=== PATIENT | female | born 1970 | race Caucasian/White ===

== ENCOUNTER 2017-04-02 13:25 | Emergency (ER) | payer OTHER ==
[2017-04-02] MEDS ORDERED: Lidocaine 1% 10 MG/ML - 20 ML VIAL SUBCUT ONE (13:49)
[2017-04-02 13:54] VITALS: RESP 15; TEMP 97.7
[2017-04-02] MEDS ORDERED: DIPH,PERTUSS,TET(ADACEL) VAC/PF 0.5 ML (Tdap) IM ONE (13:55)
--- NOTE | 2017-04-02 15:35 | PDOC ---
Hand / Wrist Injury HPI - General Chief Complaint: Upper Extremity Problem/Injury Stated Complaint: SPLINTER IN RIGHT THIRD DIGIT AFTER WIPING COUNTER Date Seen by Provider: 04/02/17 Time Seen by Provider: 13:45 Source: POSITIVE: Patient Exam Limitations: POSITIVE: No limitations Nurse's Notes Reviewed & Considered: Yes - History of Present Illness Initial Comments: The patient is a 46-year-old female. She was wiping off a wooden counter with a rag and a splinter from the counter lodged in the palmar aspect of her right third finger just distal to the distal interphalangeal joint. 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) Severity: Moderate Context: REPORTS: Other (Splinter lodged in right third finger as above) Location of Injury: REPORTS: Right, 3rd Finger Quality: REPORTS: "Pain" Modifying Factors: DENIES: Nothing Exacerbates, Walking, Movement, Rest, Ice, Nothing Relieves, Other Associated Symptoms: DENIES: Arm (R), Arm (L), Tingling Distally, Numbness Distally, Loss of Feeling, Loss of Power, Other Any Prior Injuries Related to Current Complaint?: No - Patient Home Medications Home Medications: Home Medications NK [No Home Medications Reported] 04/02/17 - Patient Allergies Allergies/Adverse Reactions: Allergies Allergy/AdvReac Type Severity Reaction Status Date / Time codeine Allergy VOMITING Verified 04/02/17 13:31 latex AdvReac RASH Verified 04/02/17 13:31 Past Medical History - heen HEENT History: Denies History Cardiovascular History: Denies History Respiratory History: Denies History Gastrointestinal History: Denies History Genitourinary History: Kidney Stones Endocrine History: Denies History Musculoskeletal History: Denies History Prosthesis or Implant: No Neurological History: Denies History Blood Disorders: Denies History Psychiatric History: Denies History History of Sexually Transmitted Diseases: No Female Reproductive History: Other (please comment) Additional Female Reproductive History: TUBAL LIGATION LMP: 03/29/2017 Cancer History: Denies History In Past Year Been Physically Harmed or Verbally Threatened: No (PER PATIENT) History of MDRO: No History of Other Communicable Diseases: No Tobacco Use: Never Smoker Alcohol Use: None Substance Use Type: None Previous Surgical History: Yes Type / Date of Surgery: TUBAL LIGATION Anesthesia Reactions: No Malignant Hyperthermia: No Family History of Malignant Hyperthermia: No Significant Family History: No pertinent family hx Past Medical History Reviewed: Reviewed - No Changes ROS - Limitations ROS Limitations: No Limitations Constitution: REPORTS: Denies Symptoms Cardiovascular: REPORTS: Denies Cardiac Symptoms Respiratory: REPORTS: Denies Resp Symptoms Neurological: REPORTS: Denies Neuro Symptoms Gastrointestinal: REPORTS: Denies GI Symptoms Endocrine: REPORTS: Denies Symptoms Musculoskeletal: REPORTS: Recent Injury (Pain at site of puncture wound palmar aspect right third finger just distal to the distal interphalangeal joint) Genitourinary: REPORTS: Denies Symptoms Eyes: REPORTS: Denies Symptoms ENT: REPORTS: Denies Symptoms Skin: REPORTS: Skin Lesions (Puncture wound with retained foreign body ( splinter of wood) palmar aspect right third finger just distal to the distal phalangeal joint) Lympathic: REPORTS: Denies Lympathic Symptoms Immunologic: POSITIVE: Denies Symptoms Psychiatric: POSITIVE: Denies Psych Symptoms Hand / Wrist Injury Exam - General Appearance General Appearance: POSITIVE: Alert, Cooperative, No Acute Distress. NEGATIVE: No Evidence of Trauma - Extremities Upper Extremity: POSITIVE: Normal ROM, Soft Tissue Tenderness, Uninjured Above Wrist, See Diagram. NEGATIVE: Non-Tender, No Evidence of FB, Bony Tenderness, Swelling, Ecchymosis, Deformity, Complete Nail Injury, Partial Avulsion, Limited ROM, Limited ROM d/t Pain, Ltd. ROM d/t Funct. Def., Snuff Box Position Tender, Axial Thumb Load Pain Neurovascular / Tendon: POSITIVE: Sensation Normal, Motor Normal, No Vascular Compromise, Tendon Function Normal Skin: POSITIVE: Warm, Dry, See Diagram (puncture wound with palpable retained wood splinter subcutaneously as above; see diagram) - Respiratory / CVS Peripheral Pulses: Radial (R): 2+, Radial (L): 2+ Images - Hands Hand: 1 - Puncture wound with retained wood splinter Procedure - Additional Procedures Additional Procedures: Other (After local anesthesia with 1% lidocaine a small incision was made with a 15-gauge scalpel over the puncture wound over the retained foreign body. The foreign body was identified and then removed with splinter forceps without difficulty. Puncture site was cleansed with normal saline and bacitracin dressing placed.) Hand / Wrist Injury Progress - Patient's Progress Pain Medication Addressed: POSITIVE: Not Applicable School/Work Release Addressed: POSITIVE: Yes (may return to work without restrictions) Re-Examine Time: 14:05 Re-Examine Comment: Foreign body extraction complete. Status: POSITIVE: Improved, Re-Examined - Consult Counseled: POSITIVE: Patient, RE: DX, RE: Need for F/U Patient Care Time - Estimated PCT Patient Care Time (In Minutes): 20 Vital Signs - Recent Vital Signs Vital Signs: Vital Signs (Last 8 hours) Temp Pulse Resp BP Pulse Ox 04/02/17 13:25 97.7 F 78 15 127/88 95 - VS Reviewed Vital Signs Reviewed: Yes Discharge Clinical Impression: Foreign body (FB) in soft tissue Discharge Disposition: Discharged to Home Condition: Stable Patient Instructions Given at Discharge: Soft Tissue Foreign Body (ED) Additional Instructions: The splinter in your right third finger has been removed. I do not believe you should have any further problems. Please wash the extraction site with soap and water daily and you can place bacitracin to the tip of your finger. Return anytime at first sign of infection or if condition worsens in any way. He have been given a tetanus vaccination and you should not need another one of these for at least 7 years. Follow Up With: NONE,NONE [Primary Care Provider] - (Instructions as above. Return here anytime if condition worsens in any way. Follow-up with your primary care provider.)
== END 2017-04-02 14:17 | disposition home or self-care (01) ==
LOC: ER 13:25
DX: M79.5 Residual foreign body in soft tissue (principal); W45.8XXA Other foreign body or object entering through skin, initial encounter
CPT/HCPCS: 20103; 90471; 99282; J2001